=== PATIENT | female | born 1995 | race American Indian/Alaskan Native ===

== ENCOUNTER 2020-01-23 13:37 | Emergency (ER) | payer SELFPAY ==
[2020-01-23 14:01] VITALS: BP 112/68
== END 2020-01-23 15:10 | disposition left against medical advice (07) ==
LOC: ED 13:37
DX: R11.0 Nausea (principal); Z53.21 Procedure and treatment not carried out due to patient leaving prior to being seen by health care provider

== ENCOUNTER 2020-01-25 15:21 | Emergency (ER) | payer SELFPAY ==
--- NOTE | 2020-01-25 19:42 | Emergency Department Report ---
ED Fall HPI - General Chief Complaint: Fall Stated Complaint: FALL INJURY WORSEN Time Seen by Provider: 01/25/20 19:38 Source: patient Mode of arrival: Ambulatory - History of Present Illness Initial Comments: 24-year-old -[place] female presents to the emergency room complaining of neck pain back pain headache and blurred vision with nausea but no vomiting. Patient reports that she tripped and fell on the sidewalk on Monday. Patient states she took Aleve yesterday and it helped some but the blurred vision neck pain and headache is still present. Patient also complains of right foot pain and redness after she had fallen and scraped and injured her right foot. Patient reports she has a past medical history of asthma currently has no known drug allergies and does not take any medications. She reports her last menstrual period was 01/12/2020. Complaint: fall Onset/Timin -: days(s) Fall From: standing When Fall Occurred: 24 hours [employer] Fall Witnessed: no Place Fall Occurred: street Loss of Consciousness: yes Prolonged Down Time?: no Symptoms Prior to Fall: none Location: head, neck, back Location - Extremities: Right: Forearm (Popping), Foot (Fifth metatarsal) Severity scale (0 -10): 8 Context: tripped/slipped Associated Symptoms: headache, neck pain - Related Data Previous Rx's Medication Instructions Recorded Last Taken Type Ibuprofen [Motrin 400 MG tab] 400 mg PO Q8H PRN #21 tablet 01/25/20 Unknown Rx Allergies Allergy/AdvReac Type Severity Reaction Status Date / Time No Known Allergies Allergy Unverified 01/23/20 13:56 ED Review of Systems ROS: Stated complaint: FALL INJURY WORSEN Other details as noted in HPI Comment: All other systems reviewed and negative ED Past Medical Hx - Past Medical History Previous Medical History?: Yes Hx Asthma: Yes Additional medical history: hyperventilation - Social History Smoking Status: Current Every Day Smoker Substance Use Type: None - Medications Home Medications: Home Medications Medication Instructions Recorded Confirmed Last Taken Type Ibuprofen [Motrin 400 MG tab] 400 mg PO Q8H PRN #21 tablet 01/25/20 Unknown Rx ED Physical Exam - General Limitations: No Limitations General appearance: alert, in no apparent distress - Head Head exam: Present: atraumatic, normocephalic - Eye Eye exam: Present: normal appearance, PERRL, EOMI - ENT ENT exam: Present: mucous membranes moist - Neck Neck exam: Present: tenderness (Cervical), full ROM - Extremities Exam Extremities exam: Present: full ROM - Expanded Lower Extremity Exam Right Hip exam: Present: normal inspection Upper Leg exam: Present: normal inspection Knee exam: Present: normal inspection Lower Leg exam: Present: normal inspection Ankle exam: Present: normal inspection Foot/Toe exam: Present: tenderness, swelling, abrasion, erythema Neuro vascular tendon exam: Present: no vascular compromise Gait: Positive: observed and normal - Back Exam Back exam: Present: full ROM, paraspinal tenderness - Neurological Exam Neurological exam: Present: alert, oriented X3, normal gait - Expanded Neurological Exam Expanded Cranial nerves: EOM's Intact: Normal, Gag Reflex: Normal, Tongue Deviation: Normal, Nystagmus: Normal, Facial Sensation: Normal, Facial Palsy with Forehead Movement: Normal, Facial Palsy without Forehead Movement: Normal Cerebellar function: Finger to Nose: Normal, Heel to Curry: Normal, Romberg: Normal Upper motor neuron: Omer Neglect: Normal, Pronator Drift: Normal, Babinski Sign: Normal, Sensory Extinction: Normal Sensory exam: Upper Extremity Light Touch: Normal, Upper Extremity Pin Prick: Normal, Upper Extremity Temperature: Normal, UE 2 Point Discrimination: Normal, Lower Extremity Light Touch: Normal, Lower Extremity Pin Prick: Normal, Lower Extremity Temperature: Normal, LE 2 Point Discrimination: Normal Motor strength exam: RUE: 4, LUE: 4, RLE: 4, LLE: 4 Best Eye Response (Triny): (4) open spontaneously Best Motor Response ([place]): (6) obeys commands Best Verbal Response ([place]): (5) oriented [place] Total: 15 - Psychiatric Psychiatric exam: Present: normal affect, normal mood - Skin Skin exam: Present: warm, dry, intact, normal color. Absent: rash ED Course Vital Signs 01/25/20 15:29 Temperature 98.3 F Pulse Rate 74 Respiratory 16 Rate Blood Pressure 113/62 [Right] O2 Sat by Pulse 97 Oximetry ED Medical Decision Making - Radiology Data Radiology results: report reviewed Referring Physician:RED HOOKSPatient Name:ABIGAIL PATPatient ID:[id number] of :[id number]:FemaleAccession:[id number] Date:9933-50-50Bbfqvl Status:Finalized Findings [address] [address] XRay Report Signed Patient: ABIGAIL PAT MR#: [id number] [birth year] : 1995 Acct:[id number] Age/Sex: 24 / F ADM Date: 01/25/20 Loc: ED Attending Dr: Ordering Physician: ANTWON MCLAIN Date of Service: 01/25/20 Procedure(s): XR foot 3+V RT Accession Number(s): [id number] cc: ANTWON MCLAIN Fluoro Time In Minutes: RIGHT FOOT 3 VIEW(S) INDICATION / CLINICAL INFORMATION: right foot injury from fall COMPARISON: None available. FINDINGS: BONES / JOINT(S): No acute fracture or subluxation. No significant arthritis. SOFT TISSUES: No significant abnormality. ADDITIONAL FINDINGS: None. Signer Name: Zoltan Walsh MD Signed: 01/25/2020 8:01 PM Workstation Name: [id number] Transcribed By: TL Dictated By: Zoltan Walsh MD Electronically Authenticated By: Zoltan Walsh MD Signed Date/Time: 01/25/202000 DD/ 99 TD/TT: Print Report Referring Physician:RED HOOKSPatient Name:ABIGAIL PATPatient ID:[id number] of :[id number]:FemaleAccession:[id number] Date:7581-17-58Qyiwje Status:Finalized Findings [address] [address] Cat Scan Report Signed Patient: ABIGAIL PAT MR#: [id number] [birth year] : 1995 Acct:[id number] Age/Sex: 24 / F ADM Date: 01/25/20 Loc: ED Attending Dr: Ordering Physician: ANTWON MCLAIN Date of Service: 01/25/20 Procedure(s): CT head/brain wo con Accession Number(s): [id number] cc: ANTWON MCLAIN CT HEAD WITHOUT CONTRAST INDICATION / CLINICAL INFORMATION: fall with neck pain. TECHNIQUE: All CT scans at this location are performed using CT dose reduction for ALARA by means of automated exposure control. COMPARISON: None available. FINDINGS: HEMORRHAGE: None. EXTRA-AXIAL SPACES: Normal in size and morphology for the patient's age. VENTRICULAR SYSTEM: Normal in size and morphology for the patient's age. CEREBRAL PARENCHYMA: No significant abnormality. No acute territorial infarct. MIDLINE SHIFT OR HERNIATION: None. CEREBELLUM / BRAINSTEM: No significant abnormality. ORBITS: Normal as visualized. SOFT TISSUES of HEAD: No significant abnormality. CALVARIUM: No significant abnormality. PARANASAL SINUSES / MASTOID AIR CELLS: Normal as visualized. ADDITIONAL FINDINGS: None. IMPRESSION: 1. No acute intracranial abnormality. Signer Name: Zoltan Walsh MD Signed: 01/25/2020 9:20 PM Workstation Name: [id number] Transcribed By: TL Dictated By: Zoltan Walsh MD Electronically Authenticated By: Zoltan Walsh MD Signed Date/Time: 01/25/202119 DD/ 18 TD/TT: Sex:FemaleAccession:[id number] Date:0789-18-20Rufsys Status:Finalized Findings [facility] [address] [place] [address] Cat Scan Report Signed Patient: ABIGAIL PAT MR#: [id number] [birth year] : 1995 Acct:[id number] Age/Sex: 24 / F ADM Date: 01/25/20 Loc: ED Attending Dr: Ordering Physician: ANTWON MCLAIN Date of Service: 01/25/20 Procedure(s): CT cervical spine wo con Accession Number(s): [id number] cc: ANTWON MCLAIN . CT CERVICAL SPINE WITHOUT CONTRAST INDICATION: fall with neck pain. TECHNIQUE: All CT scans at this location are performed using CT dose reduction for ALARA by means of automated exposure control. Axial CT images were obtained through the cervical spine. Sagittal and coronal reformatted images were produced. COMPARISON: None available. FINDINGS: Fracture: None. Subluxation: None. Spinal canal: No significant compromise. Disc spaces: Normal. Facet joints: Normal. Paraspinal soft tissues: No soft tissue swelling. Normal. Additional findings: None. Lung apices: Normal. IMPRESSION: 1. No acute findings. Signer Name: Zoltan Walsh MD Signed: 01/25/2020 9:19 PM Workstation Name: [id number] Transcribed By: TL Dictated By: Zoltan aWlsh MD Electronically Authenticated By: Zoltan Walsh MD Signed Date/Time: 01/25/202118 DD/ 16 TD/TT: - Medical Decision Making 24-year-old -[place] female presents to the emergency room complaining of neck pain back pain headache and blurred vision with nausea but no vomiting. Patient reports that she tripped and fell on the sidewalk on Monday. Patient states she took Aleve yesterday and it helped some but the blurred vision neck pain and headache is still present. Patient also complains of right foot pain and redness after she had fallen and scraped and injured her right foot. Patient reports she has a past medical history of asthma currently has no known drug allergies and does not take any medications. She reports her last menstrual period was 01/12/2020. CT of neck and head is been ordered x-ray of right foot has been ordered. All x-rays are negative for any acute abnormalities. Discharging patient home recommend taking [id number] ibuprofen. Patient did have a Tylenol 500 mg given in fast track. Patient is encouraged to follow-up with her primary care provider. Critical care attestation.: If time is entered above; I have spent that time in minutes in the direct care of this critically ill patient, excluding procedure time. ED Disposition Clinical Impression: Pain in right foot Fall Qualifiers: Encounter type: initial encounter Qualified Code(s): W19.XXXA - Unspecified fall, initial encounter Strain of neck muscle Qualifiers: Encounter type: initial encounter Qualified Code(s): S16.1XXA - Strain of muscle, fascia and tendon at neck level, initial encounter Back pain Qualifiers: Back pain location: thoracic back pain Chronicity: acute Back pain laterality: midline Qualified Code(s): M54.6 - Pain in thoracic spine Disposition: DC-01 TO HOME OR SELFCARE Is pt being admited?: No Does the pt Need Aspirin: No Condition: Stable Instructions: Muscle Strain (ED) Additional Instructions: All x-rays are negative for any acute abnormalities. I recommend taking Tylenol or ibuprofen for pain management. Increase your fluid intake. Follow-up with your primary care provider. Prescriptions: Ibuprofen [Motrin 400 MG tab] 400 mg PO Q8H PRN #21 tablet PRN Reason: Pain , Severe (7-10) Referrals: PRIMARY CARE, [Primary Care Provider] - 3-5 Days [facility] [Provider Group] - 3-5 Days Forms: Work/School Release Form(ED)
--- NOTE | 2020-01-25 20:05 | XRay Report ---
RIGHT FOOT 3 VIEW(S) INDICATION / CLINICAL INFORMATION: right foot injury from fall COMPARISON: None available. FINDINGS: BONES / JOINT(S): No acute fracture or subluxation. No significant arthritis. SOFT TISSUES: No significant abnormality. ADDITIONAL FINDINGS: None. Signer Name: Zoltan Walsh MD Signed: 01/25/2020 8:01 PM Workstation Name: [id number]
[2020-01-25] MEDS ORDERED: ACETAMINOPHEN 500 MG TAB PO ONE (21:01)
--- NOTE | 2020-01-25 21:23 | Cat Scan Report ---
. CT CERVICAL SPINE WITHOUT CONTRAST INDICATION: fall with neck pain. TECHNIQUE: All CT scans at this location are performed using CT dose reduction for ALARA by means of automated e xposure control. Axial CT images were obtained through the cervical spine. Sagittal and coronal reformatted images we re produced. COMPARISON: None available. FINDINGS: Fracture: None. Subluxation: None. Spinal canal: No significant compromise. Disc spaces: Normal. Facet joints: Normal. Paraspinal soft tissues: No soft tissue swelling. Normal. Additional findings: None. Lung apices: Normal. IMPRESSION: 1. No acute findings. Signer Name: Zoltan Walsh MD Signed: 01/25/2020 9:19 PM Workstation Name: [id number]
--- NOTE | 2020-01-25 21:24 | Cat Scan Report ---
CT HEAD WITHOUT CONTRAST INDICATION / CLINICAL INFORMATION: fall with neck pain. TECHNIQUE: All CT scans at this location are performed using CT dose reduction for ALARA by means of automated e xposure control. COMPARISON: None available. FINDINGS: HEMORRHAGE: None. EXTRA-AXIAL SPACES: Normal in size and morphology for the patient's age. VENTRICULAR SYSTEM: Normal in size and morphology for the patient's age. CEREBRAL PARENCHYMA: No significant abnormality. No acute territorial infarct. MIDLINE SHIFT OR HERNIATION: None. CEREBELLUM / BRAINSTEM: No significant abnormality. ORBITS: Normal as visualized. SOFT TISSUES of HEAD: No significant abnormality. CALVARIUM: No significant abnormality. PARANASAL SINUSES / MASTOID AIR CELLS: Normal as visualized. ADDITIONAL FINDINGS: None. IMPRESSION: 1. No acute intracranial abnormality. Signer Name: Zoltan Walsh MD Signed: 01/25/2020 9:20 PM Workstation Name: [id number]
[2020-01-25 21:59] VITALS: BP 120/69
== END 2020-01-25 22:00 | disposition home or self-care (01) ==
LOC: ED 15:21
DX: S16.1XXA Strain of muscle, fascia and tendon at neck level, initial encounter (principal); M79.671 Pain in right foot; M54.9 Dorsalgia, unspecified; J45.909 Unspecified asthma, uncomplicated; Z79.899 Other long term (current) drug therapy; Z98.890 Other specified postprocedural states; W18.30XA Fall on same level, unspecified, initial encounter; Y93.89 Activity, other specified; Y92.89 Other specified places as the place of occurrence of the external cause; Y99.8 Other external cause status
CPT/HCPCS: 70450; 72125

== ENCOUNTER 2020-04-03 19:16 | Emergency (ER) | payer SELFPAY ==
[2020-04-03 20:00] VITALS: BP 112/67
--- NOTE | 2020-04-03 20:36 | Emergency Department Report ---
Chief Complaint: Vaginal Bleeding Stated Complaint: VAG BLEED - HPI History of Present Illness: 24-year-old -[place] female presents to the emergency room for vaginal bleeding. Patient states that she took an pill yesterday and is now having bleeding with a little cramping. Patient states dates that her boyfriend brought her here to be evaluated as he is not aware that she took the pill and she does not know how to tell him. Patient states that she feels safe at home. - Exam Vital Signs: Vital Signs 04/03/20 19:56 Temperature 98.4 F Pulse Rate 90 Respiratory 16 Rate Blood Pressure 112/67 O2 Sat by Pulse 99 Oximetry Physical Exam: Alert and oriented x3 no acute distress nontoxic in appearance Nonlabored breathing Ambulatory without difficulties MSE screening note: Focused history and physical exam performed. Due to findings the following was ordered: 24-year-old -[place] female presents to the emergency room for vaginal bleeding. Patient states that she took an pill yesterday and is now having bleeding with a little cramping. Patient states dates that her boyfriend brought her here to be evaluated as he is not aware that she took the pill and she does not know how to tell him. Patient states that she feels safe at home. ED Disposition for MSE Clinical Impression: Menorrhagia Disposition: DC-01 TO HOME OR SELFCARE Is pt being admited?: No Does the pt Need Aspirin: No Condition: Stable Instructions: Menorrhagia, [id number] Referrals: [facility] [Provider Group] - 3-5 Days Forms: Work/School Release Form(ED)
== END 2020-04-03 21:00 | disposition home or self-care (01) ==
LOC: ED 19:16
DX: N92.0 Excessive and frequent menstruation with regular cycle (principal)
CPT/HCPCS: 99282